=== PATIENT | female | born 1960 | race Caucasian/White ===

== ENCOUNTER → 2017-01-14 | Outpatient (CLI) | payer BC ==
[~2017-01-14] MED LIST: ALL 100 SUPER B1 TAB PO; CARVEDILOL25 MG PO; HYCODAN 5MG. TAB5 MG PO; LEVAQUIN500 MG PO; LEXAPRO 20 MG T20 MG PO; PREDNISONE 10MG10 MG; REMERON15 MG; REMERON15 MG PO; TESSALON PERLE100 MG PO; VALSARTAN AND H1 TA1 PO; VENTOLIN H0.09 MG/AC IH; ZITHROMAX Z-PA250 M1 PO; ZYRTEC-D 12HR 51 TER PO
[2017-01-14 10:13] LABS: BUN 11 mg/dL (7-18); GFR (ESTIMATED) 47 ML/MIN (59-)
--- NOTE | 2017-01-17 07:13 | RADIOLOGY REPORT PS360 ---
CT ABD PELVIS W/WO CONTRAST INDICATION: LYMPHADENITIS ORDERING PHYSICIAN: Virginia Lamar APRN PATIENT AGE: 56 years COMPARISON: None TECHNIQUE: Axial images are obtained without and with contrast. Sagittal and coronal reformatted images are reviewed as well. FINDINGS: There is mild thickening of the pericardium anteriorly nonspecific. Lung bases are otherwise unremarkable. There are few scattered tiny isodense areas of the liver are nonspecific consistent with tiny cysts. No radio opaque gallstones. The spleen, pancreas, and adrenal glands are unremarkable. There has been a right nephrectomy. The left kidney has an unremarkable appearance. There is a tiny ventral abdominal wall hernia superiorly containing fat. There are few scattered small lymph nodes within the mesentery. No adenopathy is however evident. No evidence of appendicitis or diverticulitis. There are few scattered diverticula in the sigmoid colon. No intestinal obstruction or free air. Aorta iliac artery stents are present. Small lymph nodes are present in the inguinal region bilaterally. No enlarged inguinal or pelvic adenopathy apparent. There has been prior hysterectomy. No acute bony anomalies apparent. IMPRESSION: 1. No acute intra-abdominal or pelvic pathology. 2. No evidence of abdominal or pelvic adenopathy. There are few scattered shotty nodes in the mesentery's and inguinal region. 3. Small ventral abdominal wall hernia containing fat. This is 8 cm above the umbilicus. ...
== END ==
LOC: LAB 09:11 → RAD 09:11
PROVIDERS: Nurse Practitioner
DX: I88.9 Nonspecific lymphadenitis, unspecified (principal); Z01.812 Encounter for preprocedural laboratory examination
CPT/HCPCS: Q9967

== ENCOUNTER 2017-08-29 10:23 | Emergency (ER) | payer BC ==
[~2017-08-29] VITALS: Ht 165.1 cm; Wt 72.6 kg
--- OUTSIDE RECORDS SUMMARY | 2017-08-29 10:27 | External Medical Summary Rpt ---
Author Author [facility] Organization [facility] Address Unknown Phone Unavailable Care Team Providers Care Site Safety Manager Name Role Phone Francie SNOW PCP [phone] Encounter [facility] Date(s): 09/26/16 - 10/08/16 [facility] [address] [place] [address]- [phone] Discharge Disposition: IP Self Care / Home Attending Physician: CANDIDO VENTURA MD-SUR Admitting Physician: CANDIDO VENTURA MD-SUR Referring Physician: ELIECER SNOW MD-FAM Reason for Visit ATHSCL [place] RESERVATION ARTERIES OF EXTRM W INTRMT SANDRINE, BI LEGS Vital Signs Most recent 1 2 3 to oldest [Reference Range]: Temperature Temporal artery Source scanning (10/08/16 8:00 AM) Temperature Fahrenheit Mode (10/08/16 8:00 AM) Temperature, 97.5 Deg F Fahrenheit (10/08/16 8:00 AM) [96.8-99.7 Deg F] Pulse Method Non-Invasive BP Device (10/08/16 8:00 AM) Heart Rate 68 bpm (10/08/16 70 bpm (10/08/16 62 bpm (10/08/16 Monitored 12:45 PM) 12:30 PM) 12:15 PM) [60-100 bpm] Respiratory 35 Breaths/Min 21 Breaths/Min 11 Breaths/Min Rate [14-20 *HI*(10/08/16 *HI*(10/08/16 *LOW*(10/08/16 Breaths/Min] 12:45 PM) 12:30 PM) 12:15 PM) Blood Arm, left upper Pressure (10/08/16 8:00 AM) Location Blood Non-Invasive BP Pressure Device (10/08/16 Source 8:00 AM) Blood 117/53 mmHg 138/62 mmHg 161/67 mmHg Pressure (10/08/16 12:45 (10/08/16 12:30 *HI*(10/08/16 [90-140/60-9 PM) PM) 12:15 PM) 0 mmHg] Mean 76 (10/08/16 12:45 89 (10/08/16 12:30 97 (10/08/16 12:15 Arterial PM) PM) PM) Pressure (MAP)-BMDI Oxygen 91 % 98 % (10/08/16 96 % (10/08/16 Saturation *LOW*(10/08/16 12:30 PM) 12:15 PM) [94-100 %] 12:45 PM) Oxygen Room air Therapy Mode (10/08/16 8:00 AM) Problem List Condition Effective Status Health Informant Dates Status Back Active pain(Confirm ed) Bronchitis(C Active onfirmed) Endometriosi Active s(Confirmed) Hard of Active hearing, 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(Confirme d) High blood 09/12/13 Active pressure(Con firmed) Peripheral Active vascular disease(Conf irmed) Pneumonia(Co 09/12/13 Active nfirmed) 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) Urinary Active tract infection, hx(Confirmed ) Allergies, Adverse Reactions, Alerts Substance Reaction Severity Status Adhesive Bandage Rash Active Redness Medications multivitamin (B-Plex (Vitamin B Complex) oral tablet)1 Tab, Oral, At Bedtime, Refills: 0 Results BLOOD GASES Most recent 1 to oldest [Reference Range]: tCO2 Axel POC 24.0 mmol/L [24.0-29.0 (10/08/16 7:29 AM) mmol/L] GENERAL CHEMISTRY Most recent 1 to oldest [Reference Range]: eGFR 70 mL/min/1.73m2 [>=60 (10/08/16 7:29 AM) mL/min/1.73m 2] eGFR 58 mL/min/1.73m2 NonAfrican *LOW* [>=60 (10/08/16 7:29 AM) mL/min/1.73m 2] Sodium POC 140 mmol/L [138-146 (10/08/16 7:29 AM) mmol/L] Potassium 4.1 mmol/L POC [3.5-4.9 (10/08/16 7:29 AM) mmol/L] Chloride POC 103 mmol/L [98-109 (10/08/16 7:29 AM) mmol/L] Anion Gap 18.0 mmol/L POC (10/08/16 7:29 AM) [10.0-20.0 mmol/L] Glucose POC 102 mg/dL [70-105 (10/08/16 7:29 AM) mg/dL] BUN POC 7 mg/dL [8-26 mg/dL] *LOW* (10/08/16 7:29 AM) Creatinine 1.0 mg/dL POC [0.6-1.3 (10/08/16 7:29 AM) mg/dL] Ca Ioniz POC 1.17 mmol/L [1.12-1.32 (10/08/16 7:29 AM) mmol/L] HEMATOLOGY Most recent 1 to oldest [Reference Range]: Hematocrit 36.0 % POC *LOW* [38.0-51.0 (10/08/16 7:29 AM) %] Hemoglobin 12.2 Gram/dL POC (10/08/16 7:29 AM) [12.0-17.0 Gram/dL] Immunizations No data available for this section Procedures Procedure Date Related Body Site Diagnosis femoral stents bilateral Social History Social History Response Type Smoking Status Former smoker; Smoking Frequency Within Last 30 Days None; Tobacco Use Within Last Twelve Months Cigarettes; Years of Tobacco Use 30; Packs/Tins Daily 1; Used Tobacco, but Quit Yes; Month Tobacco Last Used 08/02/2016 Assessment and Plan No data available for this section Hospital Discharge Instructions Patient EducationAngiogram, Care After Conscious Sedation, Adult, Care After Groin Site Care (Custom) (CUSTOM) Heart-Healthy Eating Plan, [id number] Peripheral Vascular Disease, Cpwz-[id number]-Syvg Wound Infection, Pkdo-hs-Xhay
--- OUTSIDE RECORDS SUMMARY | 2017-08-29 10:27 | External Medical Summary Rpt ---
Author Author [facility] Organization [facility] Address Unknown Phone Unavailable Care Team Providers Care Technician Anatomic Pathology Name Role Phone Francie SNOW PCP [phone] Encounter [facility] [id number] Date(s): 09/02/16 - 09/02/16 [facility] [place] [address]- Discharge Disposition: OP Self Care or Home Attending Physician: CANDIDO VENTURA MD-SUR Admitting Physician: CANDIDO VENTURA MD-SUR Referring Physician: CANDIDO VENTURA MD-SUR Reason for Visit CLAUDICATION Vital Signs No data available for this section Problem List Condition Effective Status Health Informant Dates Status Back Active pain(Confirm ed) Bronchitis(C Active onfirmed) Endometriosi Active s(Confirmed) Hard of Active hearing, 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(Confirme d) High blood 09/12/13 Active pressure(Con firmed) Pneumonia(Co 09/12/13 Active nfirmed) 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
--- OUTSIDE RECORDS SUMMARY | 2017-08-29 10:27 | External Medical Summary Rpt ---
Author Author [facility] Organization [facility] Address Unknown Phone Unavailable Care Team Providers Care Caustic Purification Operator Name Role Phone Francie SNOW PCP [phone] Encounter [facility] [id number] Date(s): 09/02/16 - 09/02/16 [facility] [address] [place] [address]- Discharge Disposition: OP Self Care or Home [...]
--- OUTSIDE RECORDS SUMMARY | 2017-08-29 10:27 | External Medical Summary Rpt ---
Author Author [facility] Organization [facility] Address Unknown Phone Unavailable Care Team Providers Care Service Counselor Name Role Phone Francie SNOW PCP [phone] Encounter [facility] Date(s): 09/26/16 - 10/08/16 [facility] [address] [place] [address]- Discharge Disposition: IP Self Care / Home Attending Physician: CANDIDO VENTURA MD-SUR Admitting Physician: CANDIDO VENTURA MD-SUR Referring Physician: ELIECER SNOW MD-FAM Reason for Visit ATHSCL [place] ARTERIES OF EXTRM W INTRMT SANDRINE, BI [...] Site Care (Custom) (CUSTOM) Heart-Healthy Eating Plan, Ygwk-ir-Afer Peripheral Vascular Disease, Ysol-oz-Hxii Wound Infection, Eqhu-gg-Eekl
--- OUTSIDE RECORDS SUMMARY | 2017-08-29 10:27 | External Medical Summary Rpt ---
Author Author [facility] Organization [facility] Address Unknown Phone Unavailable Care Team Providers Care Java Flex Developer Name Role Phone Francie SNOW PCP [phone] Encounter [facility] [id number] Date(s): 02/20/17 - 03/06/[address] [facility] [place] [address]- Discharge Disposition: OP Self Care or Home Attending Physician: CANDIDO VENTURA MD-SUR Admitting Physician: CANDIDO VENTURA MD-SUR Referring Physician: CANDIDO VENTURA MD-SUR Reason for Visit CHEST PAIN, UNSPECIFIED Vital Signs No data available for this [...] Status Adhesive Bandage Rash Active Redness Medications atorvastatin (Lipitor)10 mg, Oral, Every Day, one at bedtime, Refills: 0 carvedilol 25 mg, Oral, At Bedtime, Refills: 0 cetirizine-pseudoePHEDrine (ZyrTEC-D)1 Tab, Oral, At Bedtime, 12 hour tab, Refills: 0 clopidogrel (Plavix)75 mg, Oral, Every Day, one daily ( will bring mg in am), Refills: 0 escitalopram 10 mg, Oral, At Bedtime, Refills: 0 mirtazapine 15 mg, Oral, At Bedtime, Refills: 0 multivitamin (B-Plex (Vitamin B Complex) oral tablet)1 Tab, Oral, At Bedtime, Refills: 0 psyllium (Natural Fiber Therapy) 1 dose, Oral, At Bedtime, Refills: 0 Results No data available for this section [...]
--- OUTSIDE RECORDS SUMMARY | 2017-08-29 10:27 | External Medical Summary Rpt ---
Author Author [facility] Organization [facility] Address Unknown Phone Unavailable Care Team Providers Care Facility Manager Histology Name Role Phone Francie SNOW PCP [phone] Encounter [facility] [id number] Date(s): 09/03/16 - 09/10/16 [facility] [address] [place] [address]- [phone] Discharge Disposition: OP Self Care or Home Attending Physician: CANDIDO VENTURA MD-SUR Admitting Physician: CANDIDO VENTURA MD-SUR Referring Physician: CANDIDO VENTURA MD-SUR Reason for Visit EMBOLISM AND THROMBOSIS OF UNSPECIFIED PARTS OF [place]ORTA Vital Signs Most recent 1 2 3 to oldest [Reference Range]: Temperature Temporal artery Source scanning (09/10/16 7:00 AM) Temperature Fahrenheit Mode (09/10/16 7:00 AM) Temperature, 97.7 Deg F Fahrenheit (09/10/16 7:00 [96.8-99.7 AM) Deg F] Heart Rate 70 bpm (09/10/16 74 bpm (09/10/16 68 bpm (09/10/16 Monitored 1:15 PM) 1:00 PM) 12:45 PM) [60-100 bpm] Respiratory 21 Breaths/Min 14 Breaths/Min 13 Breaths/Min Rate [14-20 *HI*(09/10/16 (09/10/16 1:00 *LOW*(09/10/16 Breaths/Min] 1:15 PM) PM) 12:45 PM) Blood Arm, left upper Pressure (09/10/16 7:00 Location AM) Blood Non-Invasive BP Pressure Device (09/10/16 Source 7:00 AM) Blood 158/64 mmHg 158/64 mmHg 140/61 mmHg Pressure *HI*(09/10/16 *HI*(09/10/16 (09/10/16 12:45 [90-140/60-9 1:15 PM) 1:00 PM) PM) 0 mmHg] Mean 91 (09/10/16 1:15 91 (09/10/16 1:00 93 (09/10/16 Arterial PM) PM) 12:45 PM) Pressure (MAP)-BMDI Oxygen 100 % (09/10/16 100 % (09/10/16 100 % (09/10/16 Saturation 1:15 PM) 1:00 PM) 12:45 PM) [94-100 %] Oxygen Room air Room air Room air Therapy Mode (09/10/16 1:15 (09/10/16 1:00 (09/10/16 12:45 PM) PM) PM) Problem List Condition Effective Status Health Informant [...] Reaction Severity Status Adhesive Bandage Active Medications atorvastatin (Lipitor) Oral, Every Day, one at bedtime, Refills: 0 clopidogrel (Plavix) Oral, Every Day, one daily ( will bring mg in am), Refills: 0 nicotine (nicotine 21 mg/24 hr transdermal film, extended release)1 Patch, TransDermal , Every Day, Refills: 0 Results GENERAL CHEMISTRY Most recent 1 to oldest [Reference Range]: eGFR 70 mL/min/1.73m2 [>=60 (09/10/16 8:19 AM) mL/min/1.73m 2] eGFR 58 mL/min/1.73m2 NonAfrican *LOW* [>=60 (09/10/16 8:19 AM) mL/min/1.73m 2] Potassium 4.0 mmol/L POC [3.5-4.9 (09/10/16 8:19 AM) mmol/L] Glucose POC 97 mg/dL [70-105 (09/10/16 8:19 AM) mg/dL] Creatinine 1.0 mg/dL POC [0.6-1.3 (09/10/16 8:19 AM) mg/dL] HEMATOLOGY Most recent 1 to oldest [Reference Range]: Hematocrit 36.0 % POC *LOW* [38.0-51.0 (09/10/16 8:19 AM) %] Hemoglobin 12.2 Gram/dL POC (09/10/16 8:19 AM) [12.0-17.0 Gram/dL] COAGULATION Most recent 1 to oldest [Reference Range]: PT [9.5-11.3 10.1 Second(s) Second(s)] (09/10/16 8:30 AM) INR 1.0 [0.0-1.1] (09/10/16 8:30 AM) Immunizations No data available for this section Procedures Procedure Date Related Body Site Diagnosis nephrectomy right side Social History Social History Response Type Smoking Status Former smoker; Smoking Frequency Within Last 30 Days Five or more cigarettes per day; Tobacco Use Within Last Twelve Months Cigarettes; Years of Tobacco Use 30; Month Tobacco Last Used 6 weeks ago; Second Hand Smoke Exposure Yes1 1quit 6 weeks ago Assessment and Plan No data available for this section Hospital Discharge Instructions Patient EducationAngiogram, Angioplasty, or Stent Placement, Care After (Custom) (Custom) Conscious Sedation, Adult, Care After Groin Site Care (Custom) (Custom)
--- OUTSIDE RECORDS SUMMARY | 2017-08-29 10:27 | External Medical Summary Rpt ---
Author Author [facility] Organization [facility] Address Unknown Phone Unavailable Care Team Providers Care Frog Catcher Name Role Phone Francie SNOW PCP [phone] Encounter [facility] [id number] Date(s): 09/03/16 - 09/10/16 [facility] [address] [place] [address]- Discharge Disposition: OP Self Care or Home [...]
--- OUTSIDE RECORDS SUMMARY | 2017-08-29 10:27 | External Medical Summary Rpt ---
Author Author [facility] Organization [facility] Address Unknown Phone Unavailable Care Team Providers Care Button Puncher Name Role Phone Francie SNOW PCP [phone] Encounter [facility] [id number] Date(s): 02/20/17 - 03/06/[address] [facility] [place] [address]- [phone] Discharge Disposition: OP Self Care or Home [...]
--- OUTSIDE RECORDS SUMMARY | 2017-08-29 10:28 | External Medical Summary Rpt ---
Author Author [employer] [facility], [facility] [facility] Organization [employer] Address Unknown Phone Unavailable
--- OUTSIDE RECORDS SUMMARY | 2017-08-29 10:28 | External Medical Summary Rpt ---
Author Author [facility] Organization [facility] Address Unknown Phone Unavailable Care Team Providers Care Scorer Single Name Role Phone Francie SNOW PCP [phone] Encounter [facility] [id number] Date(s): 02/20/17 - 03/17/17 [facility] [address] [place] [address]- Final: Atherosclerosis of [place] arteries of extremities with intermittent claudication, bilateral legs Final: Essential (primary) hypertension Final: Atherosclerotic heart disease of [place] coronary artery without angina pectoris Final: Tobacco use Final: Personal history of other malignant neoplasm of kidney Discharge Disposition: IP Self Care / Home Attending Physician: CANDIDO VENTURA MD-SUR Admitting Physician: CANDIDO VENTURA MD-SUR Referring Physician: CANDIDO VENTURA MD-SUR Reason for Visit ATHSCL [place] ARTERIES OF EXTRM W INTRMT SANDRINE, BI LEGS Vital Signs Most recent 1 2 3 to oldest [Reference Range]: Temperature Axillary Axillary Axillary (03/17/17 Source (03/17/17 8:00 AM) (03/17/17 4:00 AM) 12:00 AM) Temperature Fahrenheit Fahrenheit Fahrenheit Mode (03/17/17 8:00 AM) (03/17/17 4:00 AM) (03/17/17 12:00 AM) Temperature, 98.6 Deg F 97.8 Deg F 97.6 Deg F Fahrenheit (03/17/17 8:00 AM) (03/17/17 4:00 AM) (03/17/17 12:00 [96.8-99.7 AM) Deg F] Clinical 37 Deg C 36.6 Deg C 36.4 Deg C Temperature, (03/17/17 8:00 AM) (03/17/17 4:00 AM) (03/17/17 12:00 C AM) Pulse Method Pulse Oximetry Pulse Oximetry Arterial line (03/16/17 4:30 PM) (03/16/17 4:00 PM) (03/16/17 12:21 PM) Pulse Source Arterial (03/16/17 12:21 PM) Pulse Rhythm Regular Regular Regular (03/16/17 (03/16/17 4:30 PM) (03/16/17 4:00 PM) 12:21 PM) Heart Rate, 66 bpm Apical (03/16/17 5:24 PM) [60-100 bpm] Peripheral 74 bpm (03/16/17 71 bpm (03/16/17 69 bpm Pulse Rate 12:21 PM) 12:00 PM) (03/13/17 9:25 AM) [60-100 bpm] Heart Rate 70 bpm 67 bpm 67 bpm Monitored (03/17/17 8:00 AM) (03/17/17 6:45 AM) (03/17/17 6:30 AM) [60-100 bpm] Respiratory 25 Breaths/Min 16 Breaths/Min 18 Breaths/Min Rate [14-20 *HI* (03/17/17 6:45 AM) (03/17/17 6:30 AM) Breaths/Min] (03/17/17 8:00 AM) Blood Arm, left upper Arterial (03/16/17 Arm, right upper Pressure (03/16/17 4:00 PM) 12:21 PM) (03/13/17 9:25 AM) Location Blood Non-Invasive BP Arterial Pressure Non-Invasive BP Pressure Device (03/16/17 Line (03/16/17 Device (03/13/17 Source 4:00 PM) 12:21 PM) 9:25 AM) Blood Supine Supine (03/16/17 Sitting Pressure (03/16/17 4:00 PM) 12:21 PM) (03/13/17 9:25 AM) Position Blood 135/64 mmHg 141/68 mmHg 127/60 mmHg Pressure (03/17/17 8:00 AM) *HI* (03/17/17 6:30 AM) [90-140/60-9 (03/17/17 6:45 AM) 0 mmHg] Mean 87 95 87 Arterial (03/17/17 8:00 AM) (03/17/17 6:45 AM) (03/17/17 6:30 AM) Pressure (MAP)-BMDI Blood 157/65 mmHg 153/62 mmHg 144/57 mmHg Pressure *HI* *HI* *HI* Invasive (03/17/17 8:00 AM) (03/17/17 6:45 AM) (03/17/17 6:30 AM) [90-140/60-9 0 mmHg] Mean 98 mmHg 98 mmHg 91 mmHg Arterial (03/17/17 8:00 AM) (03/17/17 6:45 AM) (03/17/17 6:30 AM) Pressure, Line 1 Oxygen 98 % 99 % 99 % Saturation (03/17/17 8:00 AM) (03/17/17 7:33 AM) (03/17/17 6:45 AM) [94-100 %] Oxygen Nasal cannula Nasal cannula Nasal cannula Therapy Mode (03/17/17 8:00 AM) (03/17/17 7:33 AM) (03/17/17 4:00 AM) Oxygen Flow 2 Liter/Min 2 Liter/Min 2 Liter/Min Rate (03/17/17 7:33 AM) (03/17/17 4:00 AM) (03/17/17 12:00 AM) Height Measured Measured Source (03/16/17 6:49 AM) (03/13/17 9:25 AM) Height Entry [place] Format (03/16/17 6:49 AM) (03/13/17 9:25 AM) Height/Lengt 65 Inch 65 Inch h OCCITAN (03/16/17 6:49 AM) (03/13/17 9:25 AM) CLINICALHEIG 165.1 cm 165.1 cm HT (03/16/17 6:49 AM) (03/13/17 9:25 AM) Weight Standing scale Standing scale Source (03/16/17 6:49 AM) (03/13/17 9:25 AM) Weight Entry [place] Format (03/16/17 6:49 AM) (03/13/17 9:25 AM) Weight 159 lb 159 lb Nepali lb (03/16/17 6:49 AM) (03/13/17 9:25 AM) CLINICALWEIG 72.27 kg 72.27 kg HT (03/16/17 6:49 AM) (03/13/17 9:25 AM) Body Surface 1.8 m2 1.8 m2 Area (BSA) (03/16/17 6:49 AM) (03/13/17 9:25 AM) Body Mass 26.5 kg/m2 26.5 kg/m2 Index *HI* *HI* [19.0-24.0 (03/16/17 6:49 AM) (03/13/17 9:25 AM) kg/m2] Routine Bed scale Weight (03/17/17 5:00 AM) Source Routine Metric Weight Entry (03/17/17 5:00 AM) Format Routine 73.6 kg Weight, (03/17/17 5:00 AM) Kilograms Routine 74 kg Weight (03/17/17 5:00 AM) Calculation [place] Body 57 kg 57 kg Weight (03/16/17 6:49 AM) (03/13/17 9:25 AM) Problem List Condition Effective Status Health [...] Status Adhesive Bandage Rash Active Redness Medications aspirin (aspirin 81 mg oral tablet) 1 Tab, Oral, At Bedtime, Refills: 0 carvedilol (carvedilol 12.5 mg oral tablet) 1 Tab, Oral, Two Times A Day, Refills: 0 cetirizine-pseudoePHEDrine (ZyrTEC-D)1 Tab, Oral, At Bedtime, 12 hour tab, Refills: 0 clopidogrel (Plavix) 75 mg, Oral, At Bedtime, , Refills: 0 escitalopram 10 mg, Oral, At Bedtime, Refills: 0 mirtazapine 15 mg, Oral, At Bedtime, Refills: 0 multivitamin (B-Plex (Vitamin B Complex) oral tablet)1 Tab, Oral, At Bedtime, Refills: 0 psyllium (Natural Fiber Therapy) 1 dose, Oral, At Bedtime, Refills: 0 Results GENERAL CHEMISTRY Most recent 1 2 3 to oldest [Reference Range]: Sodium Level 138 mmol/L 138 mmol/L [136-146 (03/17/17 4:18 AM) (03/13/17 10:14 mmol/L] AM) Potassium 4.9 mmol/L 4.0 mmol/L Level 1(03/17/17 4:18 (03/13/17 10:14 [3.5-5.1 AM) AM) mmol/L] Chloride 102 mmol/L 101 mmol/L Level (03/17/17 4:18 AM) *LOW*(03/13/17 [102-112 10:14 AM) mmol/L] Carbon 26 mmol/L 28 mmol/L Dioxide (03/17/17 4:18 AM) (03/13/17 10:14 Level [21-32 AM) mmol/L] Anion Gap 15 (03/17/17 4:18 13 (03/13/17 10:14 [9-20] AM) AM) Glucose 143 mg/dL 92 mg/dL (03/13/17 Level *HI*(03/17/17 4:18 10:14 AM) [74-106 AM) mg/dL] Blood Urea 9 mg/dL (03/17/17 10 mg/dL (03/13/17 Nitrogen 4:18 AM) 10:14 AM) [7-22 mg/dL] Creatinine 1.10 mg/dL 1.10 mg/dL Level *HI*(03/17/17 4:18 *HI*(03/13/17 [0.55-1.02 AM) 10:14 AM) mg/dL] eGFR 63 mL/min/1.73m2 63 mL/min/1.73m2 [>=60 (03/17/17 4:18 AM) (03/13/17 10:14 mL/min/1.73m AM) 2] eGFR 52 mL/min/1.73m2 52 mL/min/1.73m2 NonAfrican *LOW*(03/17/17 *LOW*(03/13/17 [>=60 4:18 AM) 10:14 AM) mL/min/1.73m 2] Bun/Creatini 8.2 (03/17/17 4:18 9.1 (03/13/17 ne AM) 10:14 AM) [8.0-20.0] Calcium 8.3 mg/dL 9.2 mg/dL Level *LOW*(03/17/17 (03/13/17 10:14 [8.5-10.1 4:18 AM) AM) mg/dL] 1Result Comment: Released without repeat.HEMATOLOGY Most recent 1 2 3 to oldest [Reference Range]: WBC 8.4 K/uL 5.2 K/uL (03/16/17 5.4 K/uL (03/13/17 [4.0-10.0 1(03/17/17 4:18 4:50 PM) 10:14 AM) K/uL] AM) RBC 3.35 Million/uL 3.41 Million/uL 4.17 Million/uL [3.93-5.22 *LOW*(03/17/17 *LOW*(03/16/17 (03/13/17 10:14 Million/uL] 4:18 AM) 4:50 PM) AM) Hgb 9.8 g/dL 9.8 g/dL 11.9 g/dL [11.2-15.7 *LOW*(03/17/17 *LOW*(03/16/17 (03/13/17 10:14 g/dL] 4:18 AM) 4:50 PM) AM) Hct 29.8 % 30.2 % 37.0 % (03/13/17 [34.1-44.9 *LOW*(03/17/17 *LOW*(03/16/17 10:14 AM) %] 4:18 AM) 4:50 PM) MCV 89.0 fL (03/17/17 88.6 fL (03/16/17 88.7 fL (03/13/17 [79.0-94.8 4:18 AM) 4:50 PM) 10:14 AM) fL] MCH 29.3 pg (03/17/17 28.7 pg (03/16/17 28.5 pg (03/13/17 [25.6-32.2 4:18 AM) 4:50 PM) 10:14 AM) pg] MCHC 32.9 Gram/dL 32.5 Gram/dL 32.2 Gram/dL [32.2-36.5 (03/17/17 4:18 AM) (03/16/17 4:50 PM) (03/13/17 10:14 Gram/dL] AM) Platelet 229 K/uL (03/17/17 188 K/uL (03/16/17 262 K/uL (03/13/17 Count 4:18 AM) 4:50 PM) 10:14 AM) [163-369 K/uL] MPV 9.7 fL (03/17/17 9.5 fL (03/16/17 9.6 fL (03/13/17 [9.4-12.4 4:18 AM) 4:50 PM) 10:14 AM) fL] RDW 12.9 % (03/17/17 13.1 % (03/16/17 13.0 % (03/13/17 [11.6-14.4 4:18 AM) 4:50 PM) 10:14 AM) %] Neut % 55.5 % (03/13/17 [34.0-71.0 10:14 AM) %] Neut # 3.02 K/uL [1.56-6.13 (03/13/17 10:14 K/uL] AM) Lymph % 31.4 % (03/13/17 [19.3-53.1 10:14 AM) %] Lymph # 1.71 x10(3)/uL [1.00-3.90 (03/13/17 10:14 x10(3)/uL] AM) Gregg % 10.3 % [3.0-9.0 %] *HI*(03/13/17 10:14 AM) Gregg # 0.56 K/uL [0.16-1.00 (03/13/17 10:14 K/uL] AM) Eos % 1.8 % (03/13/17 [0.0-7.0 %] 10:14 AM) Eos # 0.10 x10(3)/uL [0.00-0.80 (03/13/17 10:14 x10(3)/uL] AM) Baso % 0.4 % (03/13/17 [0.0-1.5 %] 10:14 AM) Baso # 0.02 x10(3)/uL [0.00-0.20 (03/13/17 10:14 x10(3)/uL] AM) Slide Review No (03/17/17 4:18 No (03/16/17 4:50 No (03/13/17 10:14 AM) PM) AM) IG# 0.03 x10(3)/uL [0.00-0.05 (03/13/17 10:14 x10(3)/uL] AM) IG% 0.60 % (03/13/17 [0.00-0.60 10:14 AM) %] 1Result Comment: Released without repeat.BLOOD BANK Most recent 1 2 3 to oldest [Reference Range]: ABO/Rh A POS (ECHO) *Unknown*(03/13/17 10:14 AM) Antibody Negative ABSC Screen (03/13/17 10:14 AM) RBC Product Done Charted RBC Ready Ready (03/13/17 11:30 (03/13/17 9:41 AM) AM) # of Units 2 *NA*(03/13/17 9:41 AM) (03/13/17 9:41 AM) Immunizations No data available for this section Procedures No data available for this section Social History Social History Response Type Smoking Status Former smoker; Smoking Frequency Within Last 30 Days None; Tobacco Use Within Last Twelve Months Cigarettes; Years of Tobacco Use 30; Packs/Tins Daily 1; Used Tobacco, but Quit Yes; Month Tobacco Last Used 08/02/2016 Assessment and Plan Extracted from: Title: Progress/SOAP Author: CANDIDO VENTURA Date: 03/17/17 Note MD CATIE-CONSTANZA Assessment/Plan Atheroscler [place] arteries the extremities w/intermit [id number] POD #1 fem fem bypass. Concern was hypertension which is now better without any new meds started after cards consult. Only on carvedilol at home which is now given bid. Possibly go home later today if able to ambulate with PT and blood pressure stays low. Ordered: acetaminophen, 650 mg, Oral, Tab, 1-Time, PRN for Temperature, Routine, Start 03/16/17 15:52:00 EDT acetaminophen-hydrocodone, 1 Tab, Oral, Tab, Q4H, PRN for Pain (Mild 1-3), Routine, Start 03/16/17 15:52:00 EDT acetaminophen-hydrocodone, 2 Tab, Oral, Tab, Q4H, PRN for Pain (Severe 7-10), Routine, Start 03/16/17 15:52:00 EDT docusate, 100 mg, Oral, Cap, BID, Routine, Start 03/16/17 15:52:00 EDT enoxaparin, 40 mg, SubCutaneous, Inj, Daily, Routine, Start 03/17/17 9:00:00 EDT labetalol, 10 mg, IV Push, Inj, Q2H, PRN for Hypertension, Routine, Start 03/16/17 15:52:00 EDT metoprolol, 10 mg, IV Push, Inj, Q2H, PRN for Hypertension, Routine, Start 03/16/17 15:52:00 EDT morphine, 2 mg, IV Push, Inj, Q1H, PRN for Pain (Moderate 4-6), Routine, Start 03/16/17 15:52:00 EDT ondansetron, 4 mg, IV Push, Inj, Q6H, PRN for Nausea, Routine, Start 03/16/17 15:52:00 EDT pantoprazole, 40 mg, Oral, EC Tab, AC Breakfast, Routine, Start 03/17/17 7:15:00 EDT polyethylene glycol 3350, 17 Gram, Oral, Powder, Daily, PRN for Constipation, Routine, Start 03/16/17 15:52:00 EDT potassium chloride 1,000 mL, 1,000 mL, Bag Volume (mL) = 1,000, Rate = 75 mL/Hr, IntraVENous, start date 03/16/17 15:52:00 EDT, Routine sodium chloride, 10 mL, IntraVENous, Inj, See Comment, PRN for IV Use, Routine, Start 03/16/17 15:52:00 EDT Bedrest Elevate Head of Bed Facility Protocol Incentive Spirometry (Nursing) Intake and Output Strict Notify Provider Intake and Output Notify Provider Vital Signs Oxygen Therapy Pulse Oximetry Continuous Monitoring Resuscitation Status Sequential Compression Device Up to Chair Urinary Catheter Removal Vital Signs Atherosclerosis of [place] arteries of extremities with intermittent claudication, bilateral legsI70.213, Atherosclerosis of [place] arteries of extremities with intermittent claudication, bilateral legsI70.213 Occlusion of iliac [id number] Ordered: acetaminophen, 650 mg, Oral, Tab, 1-Time, PRN for Temperature, Routine, Start 03/16/17 15:52:00 EDT acetaminophen-hydrocodone, 1 Tab, Oral, Tab, Q4H, PRN for Pain (Mild 1-3), Routine, Start 03/16/17 15:52:00 EDT acetaminophen-hydrocodone, 2 Tab, Oral, Tab, Q4H, PRN for Pain (Severe 7-10), Routine, Start 03/16/17 15:52:00 EDT docusate, 100 mg, Oral, Cap, BID, Routine, Start 03/16/17 15:52:00 EDT enoxaparin, 40 mg, SubCutaneous, Inj, Daily, Routine, Start 03/17/17 9:00:00 EDT labetalol, 10 mg, IV Push, Inj, Q2H, PRN for Hypertension, Routine, Start 03/16/17 15:52:00 EDT metoprolol, 10 mg, IV Push, Inj, Q2H, PRN for Hypertension, Routine, Start 03/16/17 15:52:00 EDT morphine, 2 mg, IV Push, Inj, Q1H, PRN for Pain (Moderate 4-6), Routine, Start 03/16/17 15:52:00 EDT ondansetron, 4 mg, IV Push, Inj, Q6H, PRN for Nausea, Routine, Start 03/16/17 15:52:00 EDT pantoprazole, 40 mg, Oral, EC Tab, AC Breakfast, Routine, Start 03/17/17 7:15:00 EDT polyethylene glycol 3350, 17 Gram, Oral, Powder, Daily, PRN for Constipation, Routine, Start 03/16/17 15:52:00 EDT potassium chloride 1,000 mL, 1,000 mL, Bag Volume (mL) = 1,000, Rate = 75 mL/Hr, IntraVENous, start date 03/16/17 15:52:00 EDT, Routine sodium chloride, 10 mL, IntraVENous, Inj, See Comment, PRN for IV Use, Routine, Start 03/16/17 15:52:00 EDT Bedrest Elevate Head of Bed Facility Protocol Incentive Spirometry (Nursing) Intake and Output Strict Notify Provider Intake and Output Notify Provider Vital Signs Oxygen Therapy Pulse Oximetry Continuous Monitoring Resuscitation Status Sequential Compression Device Up to Chair Urinary Catheter Removal Vital Signs Orders: aspirin, 81 mg, Oral, Tab, At Bedtime, Routine, Start 03/16/17 21:00:00 EDT carvedilol, 1 Tab, Oral, Tab, BID, 0 Refill(s) clopidogrel, 75 mg, Oral, Tab, At Bedtime, Routine, Start 03/16/17 21:00:00 EDT escitalopram, 10 mg, Oral, Tab, At Bedtime, Routine, Start 03/16/17 21:00:00 EDT loratadine, 10 mg, Oral, Tab, Daily, Routine, Start 03/17/17 9:00:00 EDT mirtazapine, 15 mg, Oral, Tab, At Bedtime, Routine, Start 03/16/17 21:00:00 EDT multivitamin with minerals, 1 Tab, Oral, Tab, At Bedtime, Start 03/16/17 21:00:00 EDT pseudoePHEDrine, 120 mg, Oral, ER Tab, BID, Routine, Start 03/16/17 15:53:00 EDT psyllium, 1 Packet, Oral, Powder, At Bedtime, Start 03/16/17 21:00:00 EDT Consult to Physician Diet, Adult Discharge Discharge Activity Discharge Diet Discharge Follow Up Instructions PT Evaluation and Treatment Diet, Adult Discharge Discharge Activity Discharge Diet Discharge Follow Up Instructions PT Evaluation and Treatment Extracted from: Title: Cardiolgy, Author: RAEANN HUTCHISON, Date: 03/17/17 [facility] ICU Note Subjective NAD cardene gtt at 1.5 mg/hr with sbp at 140's Health StatusAllergies:Allergic Reactions (Selected)Severity Not DocumentedAdhesive Bandage- Rash and redness.Current medications: (Selected)Inpatient MedicationsOrderedColace: 100 mg, Oral, BIDDextrose 5% with 0.45% NaCl and KCl 20 mEq/L 1,000 mL: 75 mL/Hr, IntraVENousLactated Ringers Injection 1,000 mL: 20 mL/Hr, IntraVENousLopressor: 10 mg, IV Push, Q2H, PRN: HypertensionLovenox: 40 mg, SubCutaneous, DailyMetamucil: 1 Packet, Oral, At BedtimeMiraLax: 17 Gram, Oral, Daily, PRN: ConstipationNorco 5 mg-325 mg oral tablet: 1 Tab, Oral, Q4H, PRN: Pain (Mild 1-3)Alpha 7.5 mg-325 mg oral tablet: 2 Tab, Oral, Q4H, PRN: Pain (Severe 7-10)Normal Saline Flush: 10 mL, IntraVENous, See Comment, PRN: IV UseOcuvite: 1 Tab, Oral, At BedtimePlavix: 75 mg, Oral, At BedtimeProtonix: 40 mg, Oral, AC BreakfastTylenol: 650 mg, Oral, 1-Time, PRN: TemperatureZofran: 4 mg, IV Push, Q6H, PRN: Nauseaaspirin: 81 mg, Oral, At Bedtimecarvedilol: 25 mg, Oral, At Bedtimeescitalopram: 10 mg, Oral, At Bedtimelabetalol: 10 mg, IV Push, Q2H, PRN: Hypertensionloratadine: 10 mg, Oral, Dailymirtazapine: 15 mg, Oral, At Bedtimemorphine: 2 mg, IV Push, Q1H, PRN: Pain (Moderate 4-6)niCARdipine injection 25 mg + Sodium Chloride 0.9% 250 mL: Titrate, IntraVENouspseudoePHEDrine: 120 mg, Oral, BIDDocumented MedicationsDocumentedB-Plex (Vitamin B Complex) oral tablet: 1 Tab, Oral, At Bedtime, 0 Refill(s)Natural Fiber Therapy: 1 dose, Oral, At Bedtime, 0 Refill(s)Plavix: 75 mg, Oral, At Bedtime, 0 Refill(s)ZyrTEC-D: 1 Tab, Oral, At Bedtime, 12 hour tab, 0 Refill(s)aspirin 81 mg oral tablet: 1 Tab, Oral, At Bedtime, 0 Refill(s)carvedilol: 25 mg, Oral, At Bedtime, 0 Refill(s)escitalopram: 10 mg, Oral, At Bedtime, 0 Refill(s)mirtazapine: 15 mg, Oral, At Bedtime, 0 Refill(s)Problem list:All ProblemsHard of hearing, 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 / 271026567 / ConfirmedHigh blood pressure / 35697821 / ConfirmedBronchitis / 87499451 / ConfirmedPneumonia / 029601111 / ConfirmedUrinary tract infection, hx / 857683286 / Confirmedright kidney not functioning / ConfirmedEndometriosis / 7649784207 / ConfirmedProlapsed uterus / 091611212 / ConfirmedBack pain / 418167087 / ConfirmedPeripheral vascular disease / 9488336387 / Confirmed Documented B-Plex (Vitamin B Complex) oral tablet: 1 Tab, Oral, At Bedtime, 0 Refill(s) Natural Fiber Therapy: 1 dose, Oral, At Bedtime, 0 Refill(s) Plavix: 75 mg, Oral, At Bedtime, 0 Refill(s) ZyrTEC-D: 1 Tab, Oral, At Bedtime, 12 hour tab, 0 Refill(s) aspirin 81 mg oral tablet: 1 Tab, Oral, At Bedtime, 0 Refill(s) carvedilol: 25 mg, Oral, At Bedtime, 0 Refill(s) escitalopram: 10 mg, Oral, At Bedtime, 0 Refill(s) mirtazapine: 15 mg, Oral, At Bedtime, 0 Refill(s) Problem list: All Problems Hard of hearing, 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 / 138497158 / Confirmed High blood pressure / 00190658 / Confirmed Bronchitis / 28083486 / Confirmed Pneumonia / 587082533 / Confirmed Urinary tract infection, hx / 942342947 / Confirmed right kidney not functioning / Confirmed Endometriosis / 5357964956 / Confirmed Prolapsed uterus / 501066271 / Confirmed Back pain / 794810841 / Confirmed Peripheral vascular disease / 9310773627 / Confirmed ObjectiveIntake and Output 24 hour intake: Total 5,429 ml 24 hour output: Total 4,725 mlVS/MeasurementsVitals Signs (last 24 hrs) Last Charted Minimum MaximumTemp 97.8 (MAR 17 04:00)97 (MAR 16 17:00)98.6 (MAR 16 12:00)Apical HR 66 (MAR 16 17:24)66 (MAR 16 17:24)66 (MAR 16 17:24)Mon HR 72 (FEB 20 05:30)54 (FEB 19 22:45)77 (FEB 19 16:05)Periph HR 74 (MAR 16 12:21)71 (MAR 16 12:00)74 (MAR 16 12:21)Resp Rate H 25 (MAR 17 05:30)L 9 (MAR 17 00:15)H 26 (MAR 17 02:30)SBP H 143 (MAR 17 05:30)91 (MAR 17 02:00)H 200 (MAR 16 12:21)DBP 63 (MAR 17 05:30)L 49 (MAR 17 02:00)77 (MAR 16 22:30)MAP 91 (MAR 17 05:30)60 (MAR 17 02:00)113 (MAR 17 04:45)SpO2 97 (MAR 17 05:30)94 (MAR 16 16:40)100 (MAR 16 16:00)General: Alert and oriented, No acute distress.Eye: Pupils are equal, round and reactive to light, Normal conjunctiva.HENT: Normocephalic, Normal hearing.Neck: Supple, Non-tender, No carotid bruit, No jugular venous distention.Respiratory: Lungs are clear to auscultation, Respirations are non-labored, Breath sounds are equal, Symmetrical chest wall expansion.Cardiovascular: Regular rhythm, No murmur, No gallop, Good pulses equal in all extremities, Normal peripheral perfusion, No edema, SR.Gastrointestinal: Soft, Non-distended.Genitourinary: Exam deferred.Musculoskeletal: JENSEN.Integumentary: Warm, Dry.Neurologic: Alert, Oriented.Psychiatric: Cooperative, Appropriate mood & affect. Gastrointestinal: Soft, Non-distended. Genitourinary: Exam deferred. Musculoskeletal: JENSEN. Integumentary: Warm, Dry. Neurologic: Alert, Oriented. Psychiatric: Cooperative, Appropriate mood & affect. Results Review MAR 17 04:18 138 | 102 | 9 / H 143 4.9 | 26 | H 1.10 \\ MAR 17 04:18 \\ L 9.8 / 8.4 229 / L 29.8 \\General resultsToday's results: 03/17/2017 4:18 EDT Calcium Level 8.3 mg/dL LOW 4.9 | 26 | H 1.10 \\ MAR 17 04:18 \\ L 9.8 / 8.4 229 / L 29.8 \\ General results Today's results: 03/17/2017 4:18 EDT Calcium Level 8.3 mg/dL LOW Impression and Plan IMPRESSION: 1. Uncontrolled HTN 2. PAD--- SP fem-fem bypass 3. Remote tobacco abuse 4. Hx renal CA---SP rt nephrectomy PLAN: 03/17/2017-- change coreg to 12.5 bid instead of 25 mg q hs wean cardene for sbp <140 discussed smoking cessation with pt. Continue Rx as currently formulated. BP much better controlled No indication for further cardiac workup at this time Will sign off. 03/16/2017-- Wean cardene to off for SBP < 150 Restart home BP medication USE BP cuff readings Lipid panel in AM Continue ASA / Statin / Plavix / BB Hospital Discharge Instructions Patient EducationPeripheral Vascular Disease"
--- OUTSIDE RECORDS SUMMARY | 2017-08-29 10:28 | External Medical Summary Rpt | CCD ---
Author Author , SHAHZAD Organization SHAHZAD Address Unknown Phone [email or web address] Care Team Providers Care Supervisor Sunglasses Name Role Phone Hannah Santoyo MD, Unavailable Unavailable Hannah Santoyo MD Purpose Continuity of Care Document - 07-10-2013 through 2016 Problems Code Diagnosis DOS Provider Status 305.1 305.1 07-10-2013 [place] TOBACCO USE [facility] 401.9 401.9 [facility] [facility] [facility] 465.9 465.9 ACUTE 07-10-2013 [facility] Allergies, Adverse Reactions, Alerts Type Allergy to substance Adverse Reaction to Substance Substance Reaction Severity NO KNOWN ALLERGIES Unknown Unknown Vital Signs 07-10-2013 14:05 Name Value Interpretat Reference Comment ion Range Body 98.5 [degF] Temperature BP 80 mm[Hg] Diastolic BP Systolic 167 mm[Hg] Heart 66 /min Rate/Pulse O2% 97 % Respiratory 20 /min Rate 07-10-2013 13:32 Name Value Interpretat Reference Comment ion Range O2% 96 % Encounters Encounter Start End Date Code Location Performer Type Date Emergency LEXIE Santoyo MD (ER) 3 13:31 3 14:10 [facility]
--- OUTSIDE RECORDS SUMMARY | 2017-08-29 10:28 | External Medical Summary Rpt | CCD ---
Demographics Preferred Language Czech Marital Status Unknown Jewish Affiliation Unknown Race Unknown Ethnic Group Unknown Author Author , SHAHZAD PIKE Address Unknown Phone Immunization No patient found.
--- OUTSIDE RECORDS SUMMARY | 2017-08-29 10:28 | External Medical Summary Rpt | CCD ---
Demographics Preferred Language Malay Marital Status Unknown Quaker Affiliation Unknown Race Unknown Ethnic Group Unknown Author Author , SHAHZAD PIKE Address Unknown Phone Immunization No patient found.
--- OUTSIDE RECORDS SUMMARY | 2017-08-29 10:28 | External Medical Summary Rpt | CCD ---
Author Author [employer] Organization [employer] Address Unknown Phone Unavailable Purpose Continuity of Care Document - through 2016
--- OUTSIDE RECORDS SUMMARY | 2017-08-29 10:28 | External Medical Summary Rpt | CCD ---
Author Author , SHAHZAD Organization SHAHZAD Address Unknown Phone [email or web address] Team Providers Care Anesthesiologists' Assistant Name Role Phone Hannah Santoyo MD, Unavailable Unavailable Hannah Santoyo MD Purpose Continuity of Care Document - 07-10-2013 through 2016 Problems Code Diagnosis DOS Provider Status 305.1 305.1 07-10-2013 [place] TOBACCO USE [facility] 401.9 401.9 [facility] 465.9 465.9 ACUTE 07-10-2013 [facility] Allergies, Adverse Reactions, Alerts Type Allergy to [...] Santoyo MD (ER) 3 13:31 3 14:10 [facility]
--- OUTSIDE RECORDS SUMMARY | 2017-08-29 10:28 | External Medical Summary Rpt ---
Author Author [facility] Organization [facility] Address Unknown Phone Unavailable Care Team Providers Care Building Energy Consultant Name Role Phone Francie SNOW PCP [phone] Encounter [facility] [id number] Date(s): 02/20/17 - 03/17/17 [facility] [address] [place] [address]- Final: Atherosclerosis of [place] arteries of extremities with intermittent claudication, bilateral legs Final: Essential (primary) hypertension Final: Atherosclerotic heart disease of [place] coronary artery without angina pectoris Final: Tobacco use Final: Personal history of other malignant neoplasm of kidney Discharge Disposition: IP Self Care / Home Attending Physician: CANDIDO VENTURA MD-SUR Admitting Physician: CANDIDO VENTURA MD-SUR Referring Physician: CANDIDO VENTURA MD-SUR Reason for Visit ATHSCL HYDABURG ARTERIES OF EXTRM W INTRMT SANDRINE, BI [...] 6:49 AM) (03/13/17 9:25 AM) Height Entry [place] Format (03/16/17 6:49 AM) (03/13/17 9:25 AM) Height/Lengt 65 Inch 65 Inch h [place] (03/16/17 6:49 AM) (03/13/17 9:25 AM) CLINICALHEIG 165.1 cm 165.1 cm HT (03/16/17 6:49 AM) (03/13/17 9:25 AM) Weight Standing scale Standing scale Source (03/16/17 6:49 AM) (03/13/17 9:25 AM) Weight Entry [place] Format (03/16/17 6:49 AM) (03/13/17 9:25 AM) Weight 159 lb 159 lb Kiswahili lb (03/16/17 6:49 AM) (03/13/17 9:25 AM) [...] 74 kg Weight (03/17/17 5:00 AM) Calculation [place] Body 57 kg 57 kg Weight (03/16/17 [...] 1.71 x10(3)/uL [1.00-3.90 (03/13/17 10:14 x10(3)/uL] AM) [place] % 10.3 % [3.0-9.0 %] *HI*(03/13/17 10:14 AM) [place] # 0.56 K/uL [0.16-1.00 (03/13/17 10:14 K/uL] [...] Date: 03/17/17 Note MD CATIE-CONSTANZA Assessment/Plan Atheroscler [place] arteries the extremities w/intermit [id number] POD #1 fem fem bypass. 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 Ordered: acetaminophen, 650 mg, Oral, Tab, 1-Time, [...] Title: Cardiolgy, Author: RAEANN HUTCHISON, Date: 03/17/17 [facility] APR ICU Note Subjective NAD cardene gtt [...] 1 Tab, Oral, Q4H, PRN: Pain (Mild 1-3)[place] 7.5 mg-325 mg oral tablet: 2 Tab, [...] hearing, 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 / [id number] / ConfirmedHigh blood pressure / 10439249 / ConfirmedBronchitis / 55461007 / ConfirmedPneumonia / 113503804 / ConfirmedUrinary tract infection, hx / 321419871 / Confirmedright kidney not functioning / ConfirmedEndometriosis / 8420932884 / ConfirmedProlapsed uterus / 061396870 / ConfirmedBack pain / 639154379 / ConfirmedPeripheral vascular disease / 4755234234 / Confirmed Documented B-Plex (Vitamin B Complex) [...] hearing, 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 / 318095819 / Confirmed High blood pressure / 51242447 / Confirmed Bronchitis / 95346599 / Confirmed Pneumonia / 865102555 / Confirmed Urinary tract infection, hx / 224120009 / Confirmed right kidney not functioning / Confirmed Endometriosis / 4318729481 / Confirmed Prolapsed uterus / 887085152 / Confirmed Back pain / 514934522 / Confirmed Peripheral vascular disease / 4468500301 / Confirmed ObjectiveIntake and Output 24 hour [...]
[2017-08-29] MEDS ORDERED: MUCINEX1200 MG PO (10:42)
[2017-08-29] MEDS ORDERED: FLONASE 50 MCG16 GM (10:42)
[2017-08-29] MEDS ORDERED: OMNICEF 300 MG300 MG PO (10:42)
--- NOTE | 2017-08-29 10:43 | Urgent Treatment Center Report ---
History of Present Issue Date/Time Seen by Provider 08/29/17 1043 Visit Reason Pt arrived:Walked Presenting Problem:SORE THROAT, COUGH, CONGESTION X3 WKS Location if Accident: Onset of symptoms date/time:/ or onset unknown for:MEDICAL HX UNKNOWN Have you (or family members/close friends) recently traveled outside the [place]? N If Yes, where/when: Have you had exposure to infectious disease within the past month? TB? Other? Specify: Patient state that she has had sore throat cough and sinus pain and congestion on and off for 3 weeks now State that in the last few days it has returned and seems like it is getting worse State that she has tried several over the counter medications and home remedies but nothing has worked State that this morning her throat felt more sore so she came in to get checked out ALLERGIES Coded Allergies: No Known Allergies (04/25/16) Home Medications Reported Medications Cetirizine Hcl/Pse Hcl (Zyrtec-D 12HR 5 Mg-120 Mg) 1 TER PO QHS Mirtazapine (Remeron) 15 MG PO QHS Vitamin B Complex (All 100 Super B Complex) 1 TAB PO QHS ALBUTEROL (Ventolin Hfa) 2 PUFFS IH Q4HP Escitalopram Oxalate (Lexapro 20MG) 10 MG PO DAILY Carvedilol 25 MG PO DAILY VALSARTAN/HYDROCHLOROTHIAZIDE (Valsartan-Hctz 160-12.5 MG Tab) 1 TAB PO DAILY History Medical History General CAD? No Angina: No [place]: No Hypertension? Yes Hyperlipidemia? No CHF? No DVT? No PE? No COPD? No Asthma? No Anemia? No GERD? No Gastric ulcers? No GI Bleed? No Hernia? No Thyroid Problems? No Hypothyroidism? No CVA? No Seizures? No Diabetes? No Renal Insuffiency? No UTI? No Stones? No BPH? No GB Disease: No Nephritic Syndrome? No Asplenia? No Hepatitis? No Sickle Cell Disease? No Arthritis? No Migraines? No Cataracts? No Glaucoma? No MRSA? No HIV? No TB? No Anxiety? Yes Depression? No Cancer? Yes Site: RENAL More? No Immunization HX DT/Tetanus > 10 YRS Surgical Hx Previous Surgery?Y RIGHT NEPHRECTOMY HYSTERECTOMY TUBAL LIGATION TONSILLECTOMY Social History Smoking Hx Smoker: Never Smoker Tobacco: No Packs/day < 1 Pack Alcohol Alcohol: No Review of Systems All Other Systems Reviewed and Negative Constitutional denies chills, denies fever ENT nose congestion, throat pain. Respiratory cough Physical Exam Vital Signs Vital Signs Date Time Temp Pulse Resp B/P Pulse O2 O2 Flow FiO2 Ox Delivery Rate 08/29 1057 97.6 85 18 154/76 99 08/29 1029 97.6 85 18 164/130 99 General Appearance normal appearance, WD/WN, no apparent distress Ear, Nose, Throat sinus pain/drainage, nasal congestion, Throat red, irritated drainage noted with tenderness noted maxillary sinus Respiratory Status Yes: trachea midline, chest symmetrical, non tender chest. No: respiratory distress. Lung Sounds bilateral: normal breath sounds, lungs clear. Cardiovascular normal exam, regular rate/rhythm, no peripheral edema Neurologic alert, normal exam, oriented x 3 Comments Patient blood pressure found to be elevated State that she just drank coffee earlier and eat a large breakfast and hasn't taken her blood pressure medication yet will recheck blood pressure Medical Decision Making LABS/Meds/Orders Pt receiving controlled substance in ED? No Results/Orders Current Medication Orders Sig/Mesfin Start time Last Medication Dose Route Stop Time Status Admin Methylprednisolone 0 .STK-MED ONE 08/29 1049 DC Sodium Succinate .ROUTE Methylprednisolone 125 MG ONCE ONE 08/29 1045 DC 08/29 Sodium Succinate IM 08/29 1046 1050 Departure Departure Time of Disposition 1040 Disposition DC Home or Self Care(routine) Clinical Impression Primary Impression: Upper respiratory infection Qualifiers: URI type: acute pharyngitis Pharyngitis/tonsillitis etiology: unspecified etiology Qualified Code: J02.9 - Acute pharyngitis, unspecified Condition STABLE Referrals Ray PIKE,Alfredo (Family): 3 Days-Call Office if no improvement Patient Instructions Sore Throat Additional Instructions * Monitor Temp. Tylenol and/or Ibuprofen as needed. ER if fever is no less than 101 despite alternating Tylenol and Ibuprofen * Encourage fluids, water, Gatorade, powerade, pedialyte if infant/toddler/or child * Warm salt water gargles for throat irritation *Warm fluids *Sore throat lozenges *Sleep elevated *humidifier or vaporizer Lots of rest Increase fluids, water, Gatorade, powerade *Flonase 2 sprays each nostril daily but may take 2-3 days to notice improvement with it *Your throat swab was sent to lab for culture. Those results area typically sent to your primary care physician. Be sure to follow up in 2-3 days if no improvement so they can review those results and treat if necessary If you dont have primary care I recommend you get one, but in the mean time you will have to return to a walk in clinic Follow up IMMEDIATELY for new or worsening of symptoms OR no noticeable improvement over the next 48-72 hours. 911 immediately for any life threatening symptoms such as chest pain or difficulty breathing Discharge Counseling Counseled pt/family regarding diagnosis, medications/RX, home care, follow up needs Prescriptions Current Visit Scripts CEFDINIR (Cefdinir) 300 MG PO BID #20 CAP Fluticasone Propionate (Flonase 50 Mcg Nasal [place]) 2 SPRAY NA DAILY #1 BOT Guaifenesin (Mucinex) 1,200 MG PO BID #20 TER at 3468
[2017-08-29 10:57] VITALS: BP 154/76
== END 2017-08-29 10:58 | disposition home or self-care (01) ==
LOC: UTC 10:23
DX: J06.9 Acute upper respiratory infection, unspecified (principal)